=== PATIENT | male | born 2000 | race Caucasian/White ===

== ENCOUNTER 2024-08-07 11:20 | Emergency (ER) | payer OTHER, SELFPAY ==
[2024-08-07 11:25] VITALS: BP 117/80; PULSE 74; TEMP 36.7; O2SAT 98; BMI 26.8
--- NOTE | 2024-08-07 11:43 | ED_ITS ---
HPI - Animal Bite General Chief Complaint: Animal Bite Stated Complaint: DOG BITE Time Seen by Provider: 08/07/24 11:22 Source: patient History of Present Illness HPI narrative: Patient presents ED after being bit by his dog. He said he was walking past his dog and he was trying to just push through the dog and the dog apparently did not like that and then jumped up and bit his lower lip. He has a laceration to the lower lip and also he caught the inside lower gums near his teeth. Bleeding is minimal. No other injury. Tetanus is not up-to-date. The dog is known and has his vaccines, he is not concern for rabies. Related Data Previous Rx's ?Medication ?Instructions ?Recorded amoxicillin 875 mg-potassium 1 tab PO BID 7 days #14 tabs 08/07/24 clavulanate 125 mg tablet Allergies Allergy/AdvReac Type Severity Reaction Status Date / Time No Known Drug Allergies Allergy Verified 08/07/24 11:25 Review of Systems ROS Status of ROS 10 or more systems reviewed and unremark able except as noted in history and below PFSH PFSH Social History Little interest or pleasure in doing things: not at all Feeling down, depressed, or hopeless: not at all Exam Narrative Exam Narrative: General: alert, no acute distress Cardiovascular: regular rate and rhythm, normal peripheral perfusion. Respiratory: Lungs CTA, respirations non labored. Extremities: no deformity, no trauma. Neurological: oriented x 4, LOC appropriate for age. Patient has 2 small lacerations to the left side of the lower lip with minimal bleeding, swelling and hematoma. He also has a laceration near the root of the teeth on the left side, bleeding controlled. No loose teeth. Bite alignment is normal. No facial tenderness. Constitutional Vital Signs, click to edit/add: Last Vital Signs Temp 98.0 F 08/07/24 11:25 Pulse 74 08/07/24 11:25 Resp 18 08/07/24 11:25 BP 117/80 08/07/24 11:25 Pulse Ox 98 08/07/24 11:25 O2 Del Method Room Air 08/07/24 11:25 Course Vital Signs Vital signs: Vital Signs Temperature 98.0 F 08/07/24 11:25 Pulse Rate 74 08/07/24 11:25 Respiratory Rate 18 08/07/24 11:25 Blood Pressure 117/80 08/07/24 11:25 Pulse Oximetry 98 08/07/24 11:25 Oxygen Delivery Method Room Air 08/07/24 11:25 Temperature 98.0 F 08/07/24 11:25 Pulse Rate 74 08/07/24 11:25 Respiratory Rate 18 08/07/24 11:25 Blood Pressure 117/80 08/07/24 11:25 Pulse Oximetry 98 08/07/24 11:25 Oxygen Delivery Method Room Air 08/07/24 11:25 MDM - Animal Bite MDM Narrative Medical decision making narrative: 2 small lip lacerations and an intraoral laceration that should heal well on its own. Patient will be sent home with Augmentin. Tetanus was updated here. Warm salt water rinses at home and ice on and off for pain as needed. Patient comfortable with care plan for home Differential Diagnosis Differential diagnosis: Likely bite by animal and dog bite Discharge Plan Discharge Chief Complaint: Animal Bite Clinical Impression: Dog bite Patient Disposition: Home, Self-Care Time of Disposition Decision: 11:45 Condition: Good Mode of Transportation: Private Vehicle Prescriptions / Home Meds: New amoxicillin-pot clavulanate 875-125 mg tablet 1 tab PO BID 7 Days Qty: 14 0RF Print Language: Vietnamese Instructions: Animal Bite (ED) Referrals: Physician,Non-Staff, MD [Primary Care Provider] - 1 week
[2024-08-07] MEDS: ADACEL DIPH,PERTUSS(ACELL),TET VAC/PF 0.5 ML ADULT SYRINGE IM (11:51)
== END 2024-08-07 12:06 | disposition home or self-care (01) ==
PROVIDERS: Emergency Provider Emergency Medicine
DX: S01.551A Open bite of lip, initial encounter (principal); W54.0XXA Bitten by dog, initial encounter; Z23 Encounter for immunization
CPT/HCPCS: 90471; 90715; 99283